=== PATIENT | male | born 1965 | race Caucasian/White ===

== ENCOUNTER 2021-02-26 21:36 | Emergency (ER) | payer MEDICAID ==
[~2021-02-26] VITALS: Ht 172.7 cm; Wt 100.0 kg
[2021-02-26] MEDS ORDERED: TETANUS AND DIPHTHERIA TOX/PF 0.5ML SYR (ADULT) IM ONE (22:00)
[2021-02-26] MEDS ORDERED: TETANUS, DIPHTHERIA, PERTUSSIS VAC/PF 0.5ML (>7YR OLD) IM ONE (22:45)
[2021-02-27 00:35] VITALS: BP 147/91
== END 2021-02-27 00:37 | disposition home or self-care (01) ==
LOC: ER 21:36
DX: S01.01XA Laceration without foreign body of scalp, initial encounter (principal); Y04.0XXA Assault by unarmed brawl or fight, initial encounter; Y93.89 Activity, other specified; Y92.89 Other specified places as the place of occurrence of the external cause; Y99.8 Other external cause status
CPT/HCPCS: 12002; 70450; 72125; 90471; 90715; 99285; A4217; Z7610; 90714

== ENCOUNTER 2021-03-01 14:06 | Emergency (ER) | payer MEDICAID ==
[~2021-03-01] VITALS: Ht 170.2 cm; Wt 75.0 kg
[2021-03-01 14:26] VITALS: BP 133/75
== END 2021-03-01 16:55 | disposition home or self-care (01) ==
LOC: ER 14:06
DX: Z48.02 Encounter for removal of sutures (principal)
CPT/HCPCS: 99281

== ENCOUNTER 2021-03-09 09:18 | Emergency (ER) | payer MEDICAID ==
[~2021-03-09] VITALS: Ht 170.2 cm; Wt 77.0 kg
[2021-03-09 09:40] VITALS: BP 120/78
== END 2021-03-09 09:40 | disposition home or self-care (01) ==
LOC: ER 09:18
DX: Z48.02 Encounter for removal of sutures (principal)
CPT/HCPCS: 99281; Z7610